=== PATIENT | male | born 1975 | race Caucasian/White ===

== ENCOUNTER 2020-08-14 07:29 | Outpatient (REF) | payer OTHER, SELFPAY ==
[2020-08-14 11:36] LABS: Cholesterol 151 mg/dL; HDL Cholesterol 40 mg/dL; LDL Cholesterol Calculated 83 mg/dl; Triglycerides 144 mg/dL
== END 2020-08-14 07:30 | disposition home or self-care (01) ==
LOC: HO.HMGCLDS 07:29
PROVIDERS: PCP Nurse Practitioner Family; Visit Provider Nurse Practitioner Family
DX: E78.5 Hyperlipidemia, unspecified (principal)
CPT/HCPCS: 80061

== ENCOUNTER → 2020-11-30 10:29 | Outpatient (BNVA) | payer OTHER, SELFPAY | PROVIDERS: PCP Nurse Practitioner Family; Referring Provider Nurse Practitioner Family; Visit Provider Nurse Practitioner ==

== ENCOUNTER 2021-04-29 11:03 | Outpatient (REF) | payer OTHER, SELFPAY ==
--- NOTE | ~2021-04-29 | XR_ITS ---
EXAMINATION: XR LUMBOSACRAL SPINE WITH OBLIQUES CLINICAL INFORMATION: Intervertebral disc degeneration. COMPARISON: None TECHNIQUE: AP, both oblique, and lateral views of the lumbar spine. Lateral view of the lumbosacral junction. FINDINGS: There is no evidence of acute fracture, spondylolisthesis, spondylolysis. Disc spaces are maintained. Schmorl's nodes are seen involving superior endplates of T12 and L1. There is facet arthropathy bilaterally L5-S1, right greater than left. Sacroiliac joints unremarkable. XR/XR lumbar spine 4V min IMPRESSION: No acute fracture, spondylolisthesis, spondylolysis. Facet arthropathy L5-S1.
== END 2021-04-29 11:04 | disposition home or self-care (01) ==
LOC: HO.HMGCX 11:03
PROVIDERS: PCP Nurse Practitioner Family; Visit Provider Physician Assistant
DX: M51.36 Other intervertebral disc degeneration, lumbar region (principal)
CPT/HCPCS: 72110

== ENCOUNTER → 2021-05-17 09:55 | Outpatient (BNVA) | payer OTHER, SELFPAY | PROVIDERS: PCP Nurse Practitioner Family; Referring Provider Nurse Practitioner Family; Visit Provider Nurse Practitioner | DX: K21.9 Gastro-esophageal reflux disease without esophagitis (principal); K22.10 Ulcer of esophagus without bleeding; R10.9 Unspecified abdominal pain; K58.2 Mixed irritable bowel syndrome | CPT/HCPCS: 99212 ==

== ENCOUNTER 2021-06-26 14:00 | Outpatient (RCR) | payer OTHER, SELFPAY | END 2021-06-27 07:57 | disposition home or self-care (01) | LOC: HO.PTCHIC 14:00 | PROVIDERS: PCP Nurse Practitioner Family; Visit Provider Physician Assistant | DX: M51.36 Other intervertebral disc degeneration, lumbar region (principal) | CPT/HCPCS: 97014; 97110; 97140; 97163 ==

== ENCOUNTER 2021-07-30 08:38 | Outpatient (REF) | payer OTHER, SELFPAY ==
[2021-07-30 11:35] LABS: Appearance Urine CLEAR; Color Urine YELLOW; Glucose Urine UA NEG (NEG); Leukocyte Esterase Urine NEG (NEG); Nitrite Urine NEG (NEG); Specific Gravity - Urine 1.015 (1.005-1.025); Urine Blood NEG (NEG); Urine Ketones NEG (NEG); Urine Protein NEG (NEG-TRACE)
[2021-07-30 12:00] LABS: Alanine Aminotransferase 23 U/L (0-40); Albumin Level 4.2 g/dL (3.5-5.0); Alkaline Phosphatase 53 U/L (39-117); Anion Gap 15 (12-20); Aspartate Amino Transferase 18 U/L (5-37); Bilirubin Total 0.4 mg/dL (0.0-1.0); Blood Urea Nitrogen 13 mg/dL (9-16); Calcium 8.7 mg/dL (8.4-10.2); Carbon Dioxide 26 mmol/L (22-29); Chloride 105 mmol/L (96-108); Cholesterol 218 mg/dL; Estimated Glomerular Filt Rate > 60; Glucose Fasting 101 mg/dL (60-99); HDL Cholesterol 47 mg/dL; LDL Cholesterol Calculated 144 mg/dl; Potassium 3.7 mmol/L (3.3-5.1); Sodium 142 mmol/L (135-145); Total Protein 6.3 g/dL (6.5-8.0); Triglycerides 136 mg/dL
[2021-07-30 12:23] LABS: TSH reflex Free T4 3.75 uIU/mL (0.32-4.0)
== END 2021-07-30 08:39 | disposition home or self-care (01) ==
LOC: HO.HMGCLDS 08:38
PROVIDERS: PCP Nurse Practitioner Family; Visit Provider Nurse Practitioner Family
DX: Z00.00 Encounter for general adult medical examination without abnormal findings (principal)
CPT/HCPCS: 36415; 80053; 80061; 81003; 84443

== ENCOUNTER 2021-10-17 08:22 | Outpatient (REF) | payer OTHER, SELFPAY ==
[2021-10-17 12:35] LABS: Alanine Aminotransferase 20 U/L (0-40); Albumin Level 4.4 g/dL (3.5-5.0); Alkaline Phosphatase 54 U/L (39-117); Anion Gap 12 (12-20); Aspartate Amino Transferase 17 U/L (5-37); Bilirubin Total 0.3 mg/dL (0.0-1.0); Blood Urea Nitrogen 14 mg/dL (9-16); Calcium 9.3 mg/dL (8.4-10.2); Carbon Dioxide 29 mmol/L (22-29); Chloride 106 mmol/L (96-108); Cholesterol 227 mg/dL; Estimated Glomerular Filt Rate > 60; Glucose Fasting 107 mg/dL (60-99); HDL Cholesterol 41 mg/dL; LDL Cholesterol Calculated 143 mg/dl; Potassium 4.4 mmol/L (3.3-5.1); Sodium 143 mmol/L (135-145); Total Protein 6.6 g/dL (6.5-8.0); Triglycerides 216 mg/dL
== END 2021-10-17 08:23 | disposition home or self-care (01) ==
LOC: HO.HMGCLDS 08:22
PROVIDERS: PCP Nurse Practitioner Family; Visit Provider Nurse Practitioner Family
DX: E78.5 Hyperlipidemia, unspecified (principal)
CPT/HCPCS: 36415; 80053; 80061

== ENCOUNTER → 2021-11-11 13:42 | Outpatient (BNVA) | payer OTHER, SELFPAY | PROVIDERS: PCP Nurse Practitioner Family; Referring Provider Nurse Practitioner Family; Visit Provider Nurse Practitioner | DX: K21.9 Gastro-esophageal reflux disease without esophagitis (principal); K22.10 Ulcer of esophagus without bleeding; K58.2 Mixed irritable bowel syndrome | CPT/HCPCS: 99212 ==

== ENCOUNTER 2021-12-12 09:59 | Outpatient (REF) | payer OTHER, SELFPAY ==
[2021-12-12 11:33] LABS: Cholesterol 232 mg/dL; HDL Cholesterol 43 mg/dL; LDL Cholesterol Calculated 117 mg/dl; Triglycerides 360 mg/dL
== END 2021-12-12 10:00 | disposition home or self-care (01) ==
LOC: HO.HMGCLDS 09:59
PROVIDERS: PCP Nurse Practitioner Family; Visit Provider Nurse Practitioner Family
DX: E78.5 Hyperlipidemia, unspecified (principal)
CPT/HCPCS: 36415; 80061

== ENCOUNTER → 2022-07-11 12:00 | Outpatient (BNVA) | payer OTHER, SELFPAY | PROVIDERS: PCP Nurse Practitioner Family; Referring Provider Nurse Practitioner Family; Visit Provider Nurse Practitioner | DX: K21.9 Gastro-esophageal reflux disease without esophagitis (principal); K22.10 Ulcer of esophagus without bleeding; K58.2 Mixed irritable bowel syndrome; Z79.899 Other long term (current) drug therapy | CPT/HCPCS: 99212 ==

== ENCOUNTER 2022-09-12 09:13 | Outpatient (REF) | payer OTHER, SELFPAY ==
[2022-09-12 11:31] LABS: Appearance Urine Clear; Color Urine Yellow; Glucose Urine UA Negative (Negative); Leukocyte Esterase Urine Negative (Negative); Nitrite Urine Negative (Negative); PH 6.5 (5.0-9.0); Specific Gravity - Urine 1.015 (1.005-1.025); Urine Blood Negative (Negative); Urine Ketones Negative (Negative); Urine Protein Negative (Neg-Trace)
[2022-09-12 11:34] LABS: MANUAL DIFF FLAG NO
[2022-09-12 11:43] LABS: Basophils Absolute Auto 0.1 X10*3/uL (0.0-0.2); Basophils Percent Auto 0.9 % (0-2); Eosinophils Absolute Auto 0.1 X10*3/uL (0.0-0.4); Eosinophils Percent Auto 2.3 % (0-4); Hematocrit 44.6 % (42.0-52.0); Imm Gran Abs Auto 0.02 X10*3/uL (0.00-0.03); Imm Gran Pct Auto 0.4 % (0.0-0.4); Lymphocytes Percent Auto 35.4 % (20-40); Mean Corpuscular HGB Conc 33.6 g/dl (31.0-36.0); Mean Corpuscular Hemoglobin 30.8 pg (27.0-33.0); Mean Corpuscular Volume 91.6 fL (80.0-98.0); Mean Platelet Volume 9.5 fL (9.4-12.4); Monocytes Absolute Auto 0.7 X10*3/uL (0.1-1.2); Monocytes Percent Auto 11.4 % (2-11); Neutrophils Absolute Auto 2.8 x10*3/uL (2.0-8.3); Neutrophils Percent Auto 49.6 % (45-73); Platelet Count 194 X10*3/uL (160-400); Red Blood Count 4.87 X10*6/uL (4.60-5.80); Red Cell Distribution Width 12.1 % (11.0-16.0); White Blood Count 5.7 X10*3/uL (4.8-10.8)
[2022-09-12 11:55] LABS: Alanine Aminotransferase 39 U/L (0-40); Albumin Level 4.4 g/dL (3.5-5.0); Alkaline Phosphatase 55 U/L (39-117); Anion Gap 14 (12-20); Aspartate Amino Transferase 27 U/L (5-37); Bilirubin Total 0.5 mg/dL (0.0-1.0); Blood Urea Nitrogen 13 mg/dL (9-16); Calcium 9.2 mg/dL (8.4-10.2); Carbon Dioxide 28 mmol/L (22-29); Chloride 104 mmol/L (96-108); Cholesterol 235 mg/dL; Estimated Glomerular Filt Rate > 60; Glucose Fasting 99 mg/dL (60-99); HDL Cholesterol 41 mg/dL; LDL Cholesterol Calculated 119 mg/dl; Potassium 4.4 mmol/L (3.3-5.1); Sodium 142 mmol/L (135-145); Total Protein 6.7 g/dL (6.5-8.0); Triglycerides 379 mg/dL
[2022-09-12 12:21] LABS: TSH reflex Free T4 2.31 uIU/mL (0.32-4.0)
== END 2022-09-12 09:14 | disposition home or self-care (01) ==
LOC: HO.HMGCLDS 09:13
PROVIDERS: PCP Nurse Practitioner Family; Visit Provider Nurse Practitioner Family
DX: Z00.00 Encounter for general adult medical examination without abnormal findings (principal)
CPT/HCPCS: 36415; 80053; 80061; 81003; 84443; 85025

== ENCOUNTER → 2023-01-23 12:56 | Outpatient (BNVA) | payer OTHER, SELFPAY | PROVIDERS: PCP Nurse Practitioner Family; Visit Provider Nurse Practitioner | DX: K58.2 Mixed irritable bowel syndrome (principal); K22.10 Ulcer of esophagus without bleeding; K21.9 Gastro-esophageal reflux disease without esophagitis; Z53.20 Procedure and treatment not carried out because of patient's decision for unspecified reasons | CPT/HCPCS: 99212 ==

== ENCOUNTER 2023-04-06 10:45 | Outpatient (REF) | payer OTHER, SELFPAY ==
[2023-04-06 13:59] LABS: MANUAL DIFF FLAG NO
[2023-04-06 14:03] LABS: Appearance Urine Clear; Color Urine Yellow; Glucose Urine UA Negative (Negative); Leukocyte Esterase Urine Negative (Negative); Nitrite Urine Negative (Negative); PH 6.5 (5.0-9.0); Specific Gravity - Urine 1.015 (1.005-1.025); Urine Blood Negative (Negative); Urine Ketones Negative (Negative); Urine Protein Negative (Neg-Trace)
[2023-04-06 14:06] LABS: Basophils Percent Auto 0.7 % (0-2); Eosinophils Absolute Auto 0.1 X10*3/uL (0.0-0.4); Hemoglobin 16.1 g/dl (14.0-18.0); Imm Gran Abs Auto 0.02 X10*3/uL (0.00-0.03); Imm Gran Pct Auto 0.3 % (0.0-0.4); Lymphocytes Absolute Auto 1.8 X10*3/uL (1.2-4.9); Lymphocytes Percent Auto 30.3 % (20-40); Mean Corpuscular HGB Conc 33.5 g/dl (31.0-36.0); Mean Corpuscular Hemoglobin 30.8 pg (27.0-33.0); Mean Corpuscular Volume 91.8 fL (80.0-98.0); Mean Platelet Volume 9.5 fL (9.4-12.4); Monocytes Absolute Auto 0.7 X10*3/uL (0.1-1.2); Monocytes Percent Auto 11.7 % (2-11); Neutrophils Absolute Auto 3.2 x10*3/uL (2.0-8.3); Platelet Count 211 X10*3/uL (160-400); Red Blood Count 5.23 X10*6/uL (4.60-5.80); Red Cell Distribution Width 12.1 % (11.0-16.0); White Blood Count 5.9 X10*3/uL (4.8-10.8)
[2023-04-06 14:50] LABS: Alanine Aminotransferase 38 U/L (0-40); Albumin Level 4.3 g/dL (3.5-5.0); Alkaline Phosphatase 63 U/L (39-117); Anion Gap 14 (12-20); Aspartate Amino Transferase 25 U/L (5-37); Bilirubin Total 0.4 mg/dL (0.0-1.0); Blood Urea Nitrogen 9 mg/dL (9-16); Calcium 9.1 mg/dL (8.4-10.2); Carbon Dioxide 28 mmol/L (22-29); Chloride 106 mmol/L (96-108); Cholesterol 211 mg/dL; Estimated Glomerular Filt Rate > 60; Glucose Fasting 90 mg/dL (60-99); HDL Cholesterol 41 mg/dL; LDL Cholesterol Calculated 118 mg/dl; Potassium 4.3 mmol/L (3.3-5.1); Sodium 144 mmol/L (135-145); TSH reflex Free T4 2.73 uIU/mL (0.32-4.0); Total Protein 6.5 g/dL (6.5-8.0); Triglycerides 264 mg/dL
== END 2023-04-06 10:46 | disposition home or self-care (01) ==
LOC: HO.HMGCLDS 10:45
PROVIDERS: PCP Nurse Practitioner Family; Visit Provider Nurse Practitioner Family
DX: Z01.83 Encounter for blood typing (principal); E78.5 Hyperlipidemia, unspecified
CPT/HCPCS: 36415; 80053; 80061; 81003; 84443; 85025; 86900; 86901

== ENCOUNTER 2023-08-18 12:33 | Outpatient (AMB) | payer OTHER, SELFPAY ==
--- NOTE | 2023-08-18 12:35 | MHC.OFFVIS ---
Intake Vital Signs 08/18/23 12:36 Height 5 ft 6 in Weight 201 lb 15.095 oz BMI 32.6 BP 140/78 H Blood Pressure Location Lt brachial Position Sitting Pulse 62 Intake Visit Reasons: 6 month follow up Intake Note: Curtis presents in the office as a 6 month follow up. CC: He states he has been doing well and reports no changes . Circus Rider Required: No Allergies No Known Allergies Allergy (Verified 05/06/23 10:16) HPI 6 month follow up HPI Details Assessment & Plan (1) GERD (gastroesophageal reflux disease): Code(s): K21.9 - Gastro-esophageal reflux disease without esophagitis Plan: He is here today with his who is supportive. He started a probiotic supplement. We will maintain all the meds. He continues his famotidine bid, dicyclomine and simethicone - but the simethicone is not covered by his insurance. He has OTC Gas-X pills. He is still anxious re: colonoscopy, he will call if he wants it going forward. We again discussed the sedation the prep and the procedure to try to lay any of his fears. He had a says he understands that is fears or rational but he still has to work up the courage to have it done. Sounds more like he does not like the thought of something going into the rectal area more than the fears anesthesia. There is no strong family history of colon cancer or polyps. He says that he is afraid that they will ?find something bad. ? I reassured him that age 47 this is incredibly unlikely but if he waits too long then you increase the likelihood of having a negative outcome. He has some rectal smearing, likely r/t hemorrhoids. Some help with OTC hemorrhoid cream, has not had rx cream. I instruct him on how to appropriately use the cream and I will try sending a prescription preparation. ROV 6 mos. (2) Erosive esophagitis: Comment: Very small linear erosion on 2019 EGD, There is an element of esophageal spasm that was relieved 40 started on dicyclomine for IBS Code(s): K22.10 - Ulcer of esophagus without bleeding Plan: He is here today with his who is supportive. He started a probiotic supplement. We will maintain all the meds. He continues his famotidine bid, dicyclomine and simethicone - but the simethicone is not covered by his insurance. He has OTC Gas-X pills. He is still anxious re: colonoscopy, he will call if he wants it going forward. We again discussed the sedation the prep and the procedure to try to lay any of his fears. He had a says he understands that is fears or rational but he still has to work up the courage to have it done. Sounds more like he does not like the thought of something going into the rectal area more than the fears anesthesia. There is no strong family history of colon cancer or polyps. He says that he is afraid that they will ?find something bad. ? I reassured him that age 47 this is incredibly unlikely but if he waits too long then you increase the likelihood of having a negative outcome. He has some rectal smearing, likely r/t hemorrhoids. Some help with OTC hemorrhoid cream, has not had rx cream. I instruct him on how to appropriately use the cream and I will try sending a prescription preparation. ROV 6 mos. (3) Irritable bowel syndrome with both constipation and diarrhea: Code(s): K58.2 - Mixed irritable bowel syndrome (4) Hemorrhoids: Code(s): K64.9 - Unspecified hemorrhoids (5) Colonoscopy refused: Code(s): Z53.20 - Procedure and treatment not carried out because of patient's decision for unspecified reasons Medications: New hydrocortisone 2.5 % (Proctosol HC) 1 appl [place] BID 30 grams 3RF hemorrho ids K64.9 - Unspecifie d hemorrhoids Refilled dicyclomine A 1-2 tablets 4 t imes a day as need ed for cramping PO ; 30 days 720 cap s 1RF K58.2 - Mixed irri table bowel syndro me, R10.9 - Unspec ified abdominal pa in famotidine 40 mg PO BID 30 d ays 180 tabs 2RF K21.9 - Gastro-eso phageal reflux dis ease without esoph agitis, K22.10 - U lcer of esophagus without bleeding simethicone (Gas R elief (simethicone )) 125 mg PO BID-QID 30 days PRN 240 c aps 2RF bloating K21.9 - Gastro-eso phageal reflux dis ease without esoph agitis, K22.10 - U lcer of esophagus without bleeding TODAY'S VISIT He is here today with his who is supportive. He continues his famotidine bid, dicyclomine and simethicone - but the simethicone is not covered by his insurance. He has OTC Gas-X pills. He is agreeable to having a colonoscopy scheduled. He continues with pudding-like stools and he has some rectal leakage that is bothersome. The hemorrhoid cream not helpful with this, but helps with the itching. He continues on. He wants a pill prep but Sutab not covered so will try for Clenpic which is on his formulary He has a FHX of Crohns in his children. He does not know his FHX> He will have anxiety prior to procedures, this will often trigger HTN but is relieved with sedation. This happened when he had an EGD in the past with Dr. Shaver. He has asthma that is well controlled and he denies cardiac problems. NO iD problems. He does not know his FHX. [facility] Medical History Cervical radiculitis Anxiety Dyslipidemia Thoracic disc herniation Surgical History H/O esophagogastroduodenoscopy No pertinent past surgical history Family History Father No problems noted. Mother No problems noted. Maternal Grandmother Mental health disorder Social History Household Members: Significant Other Housing: Apartment Alcohol intake: current Alcohol intake frequency: holidays/special occasions only Patient Tobacco Use Status: Former Tobacco user Years Smoked: 4 years ago e-Cigarette/Vaping Use: Never Used Second Hand Smoke Exposure: No Substance Use Type: Marijuana service: No Current occupational status: employed Current occupation: ANGULAR DEVELOPER Cognitive needs: No Hearing needs: No Vision needs: No Review of Systems Const Denies fatigue, Denies fever(s), Denies night sweats, Denies poor appetite and Denies weight loss ENT Reports Normal hearing present, Denies dental pain, Denies dysphagia, Denies hearing loss, Denies mouth pain, Denies odynophagia, Denies throat swelling, Denies tongue swelling and Reports other (Dentition adequate) Card Reports no additional complaints Resp Reports no additional complaints GI Denies abdominal pain, Denies melena, Reports bloating, Denies hematochezia, Denies constipation, Denies GI cramping, Denies dysphagia, Denies excessive flatus, Denies early satiety, Reports heartburn, Denies diarrhea, Denies nausea, Denies odynophagia, Denies vomiting and Denies hematemesis Skin/Breast Denies pruritus, Denies lesions, Denies rash and Denies jaundice Neuro Reports Normal hearing present and Denies Abnormal speech present Psych Reports anxiety Endo Denies fatigue Aller/Immun Denies throat swelling and Denies tongue swelling Physical Exam Vital Signs: Last Vital Signs Pulse 62 08/18/23 12:36 BP 140/78 H 08/18/23 12:36 BMI result Body Mass Index 32.6 Const General: cooperative, no acute distress, well developed, poor hygiene and well groomed Nutritional Appearance: well nourished and obese Orientation/consciousness: oriented to person, oriented to place and oriented to time Limitations: No language barrier HEENT Head: Yes normocephalic and Yes atraumatic Eyes General: appearance normal, both eyes and all related structures Pupils: Equal, round and reactive pupils present Neck Neck: Yes normal visual inspection and Yes no lymphadenopathy Thyroid: Thyroid normal Resp Effort & Inspection: normal respiratory effort and able to speak in complete sentences Auscultation: clear to auscultation bilaterally Cardio Rate: regular rate Rhythm: regular rhythm Heart sounds: Normal, physiologic split S2 sound present Peripheral pulses: radial pulses present and posterior tibial pulses present GI Inspection: No distended, No Abdominal panniculus present and Yes obesity Palpation (GI): Soft to palpation, nontender, no guarding, not rigid and No hepatosplenomegaly present Percussion: Yes normal to percussion Auscultation: normal bowel sounds Rectal Exam - Male: Yes deferred Skin General skin exam: no rashes or lesions noted, turgor normal, skin not dry, no jaundice, No spider nevi and no striae Rashes: no rashes Nails: normal Neuro General: oriented to person, oriented to place and oriented to time Cranial nerves: Yes Equal, round and reactive pupils present and Yes Normal hearing present Speech: No Abnormal speech present Extrem General: Yes normal to inspection, No clubbing, No cyanosis and No edema Psych Appearance: grossly normal and disheveled Mental Status: mental status grossly normal Speech and movement: Normal speech and movement present Affect: Anxious affect present Attitude: cooperative Thought process: Normal thought process present and not confabulating Thought content: Normal thought content present Insight: Limited insight present (Psych) Judgement: Limited judgement present (Psych) Assessment & Plan Assessment & Plan (1) GERD (gastroesophageal reflux disease): Code(s): K21.9 - Gastro-esophageal reflux disease without esophagitis Plan: He is here today with his who is supportive. He continues his famotidine bid, dicyclomine and simethicone - but the simethicone is not covered by his insurance. He has OTC Gas-X pills. He is agreeable to having a colonoscopy scheduled. He continues with pudding-like stools and he has some rectal leakage that is bothersome. The hemorrhoid cream not helpful with this, but helps with the itching. He continues on. He wants a pill prep but Sutab not covered so will try for Clenpic which is on his formulary He has a FHX of Crohns in his children. He does not know his FHX> He will have anxiety prior to procedures, this will often trigger HTN but is relieved with sedation. This happened when he had an EGD in the past with Dr. Shaver. He has asthma that is well controlled and he denies cardiac problems. NO iD problems. He does not know his FHX. (2) Erosive esophagitis: Comment: Very small linear erosion on 2019 EGD, There is an element of esophageal spasm that was relieved 40 started on dicyclomine for IBS Code(s): K22.10 - Ulcer of esophagus without bleeding (3) Irritable bowel syndrome with both constipation and diarrhea: Code(s): K58.2 - Mixed irritable bowel syndrome (4) Pre-op examination: Code(s): Z01.818 - Encounter for other preprocedural examination Orders: Orders Colonoscopy - GI Use Only Today Z01.818 - Encounter for other preprocedural examination Medications: New sod picosulf-mag ox-citric ac 10 mg-3.5 gram- 12 gram/160 mL (Clenpiq) take first dose at 5-9PM evening before colonoscopy; 2nd dose the next day approximately 5 hrs before colonoscopy 160 mL PO DAILY 320 mL 0RF Z81 - Encounter for other preprocedural examination Refilled dicyclomine A 1-2 tablets 4 times a day as needed for cramping PO; 30 days 720 caps 1RF K58.2 - Mixed irritable bowel syndrome, R10.9 - Unspecified abdominal pain famotidine 40 mg PO BID 30 days 180 tabs 2RF K21.9 - Gastro-esophageal reflux disease without esophagitis, K22.10 - Ulcer of esophagus without bleeding On Hold simethicone (Gas Relief (simethicone)) Hold Comment: insurance does not pay 125 mg PO BID-QID 30 days PRN 240 caps 2RF bloating K21.9 - Gastro-esophageal reflux disease without esophagitis, K22.10 - Ulcer of esophagus without bleeding Coding Level of Care Code Est Pt Level 4 (29245) Diagnoses GERD (gastroesophageal reflux disease) K21.9 Erosive esophagitis K22.10 Irritable bowel syndrome with both constipation and diarrhea K58.2 Pre-op examination [id number]
[2023-08-18 12:36] VITALS: BP 140/78; PULSE 62; BMI 32.6
== END 2023-08-18 13:05 | disposition home or self-care (01) ==
PROVIDERS: Visit Provider Nurse Practitioner
DX: K21.9 Gastro-esophageal reflux disease without esophagitis (principal); K22.10 Ulcer of esophagus without bleeding; K58.2 Mixed irritable bowel syndrome; Z01.818 Encounter for other preprocedural examination
CPT/HCPCS: 99214

== ENCOUNTER → 2023-08-18 12:33 | Outpatient (BNVA) | payer OTHER, SELFPAY | PROVIDERS: Visit Provider Nurse Practitioner | DX: Z01.818 Encounter for other preprocedural examination (principal); K21.9 Gastro-esophageal reflux disease without esophagitis; K22.10 Ulcer of esophagus without bleeding; K58.2 Mixed irritable bowel syndrome | CPT/HCPCS: 99212 ==

== ENCOUNTER 2023-11-10 07:58 | Day surgery (SDC) | payer OTHER, SELFPAY ==
[2023-11-10 08:51] VITALS: BMI 32.0
[2023-11-10 09:09] VITALS: BP 144/78; PULSE 69; RESP 16; TEMP 36.2; O2SAT 94
[2023-11-10] MEDS: Lactated Ringers 1,000 ML 80 ML IVCONT (09:15)
--- NOTE | 2023-11-10 09:44 | MHC.SHP ---
Pre-Procedural Eval Section A Date of Service: 11/10/23 Section B Chief Complaint: Mixed irritable bowel syndrome Details of Present Illness: abnormal bowel habit Relevant Family History (Specify if Yes): No Relevant Social History: Other (specify) (THC) Present Medications: see Short Stay Collaborative assessment Medical History: Significant History (Cervical radiculitis Anxiety Dyslipidemia Thoracic disc herniation) History of Previous Operations: Relevant previous surgery/procedure and date(s) (H/O esophagogastroduodenoscopy ) Allergies: Allergies Allergy/AdvReac Type Severity Reaction Status Date / Time No Known Allergies Allergy Verified 05/06/23 10:16 Review of Systems Sugical H&P ROS: Negative: Constitution, Cardiovascular, Respiratory, Neurological, Psychiatric, Hem-Onc, Allergic/Immunologic, Gastrointestinal, Genitourinary, Musculoskeletal, Integumentary, Endocrine and Eyes/Ears/Nose/Throat Exam Surgical H&P Exam: Normal: HEENT, Normal: Heart, Normal: Lungs, Normal: Extremities, Normal: Abdomen, Normal: Skin and Normal: Neurological Plan Diagnosis/Plan: Unchanged I have reviewed the history and physical and performed a pertinent physical examination on my patient. No changes have occurred unless specified. Time Spent With Patient Time: Total time managing care of this patient today ____ minutes.
--- NOTE | 2023-11-10 11:34 | P.OP_ITS ---
Operative Note Operative Note Date of Service: 11/10/23 Narrative: Operative Information Procedure Description: Colonoscopy Indication: altered bowle habit Anesthesia: MAC COLONOSCOPY Instrument: Olympus variable stiffness pediatric scope 190L Colonoscopy Monitoring: Vital signs and clinical assessment, continuous EKG monitoring, Pulse oximetry, Carbon Dioxide monitoring and blood pressure monitoring were done throughout the procedure. Colon withdrawal time was 10 minutes. Procedure: The patient was placed in the left lateral decubitis position and pre-procedure medications were administered. After a digital rectal examination of the ano-rectum, the video colonoscope was inserted into the rectum and advanced through the colon to the cecum/TI. The colonoscope was slowly withdrawn in a retrograde panoramic fashion and the colon mucosa was carefully examined including a retroflexed view of the rectum. Findings and interventions are described below. Procedure Difficulty: easy Findings: Terminal Ileum-normal Cecum:normal Ascending Colon: normal Transverse Colon -normal Descending Colon:normal Sigmoid Colon: normal Rectum: Retroflexion with small internal hemorrhoids, grade I Anorectum - normal Colon preparation: Currie Bowel Preparation Scale Right colon; 1-2 Transverse colon: 2 Left colon; 2 (0 = Unprepared colon segment with mucosa not seen due to solid stool that cannot be cleared. 1 = Portion of mucosa of the colon segment seen, but other areas of the colon segment not well seen due to staining, residual stool and/or opaque liquid. 2 = Minor amount of residual staining, small fragments of stool and/or opaque liquid, but mucosa of colon segment seen well. 3 = Entire mucosa of colon segment seen well with no residual staining, small fragments of stool or opaque liquid) Impression and Post Procedure Diagnosis: fair prep on right colon internal hemorrhoids Plan: High fiber diet leaflet Avoid straining at stool, epsom salts and sitz bath, anusol supps or cream Repeat Colonoscopy in 5 years due to fair prep right side or earlier if clinically indicated Above findings were reviewed with the patient and relevant handouts were provided if indicated.
[2023-11-10 11:40] VITALS: BP 120/70; PULSE 74; RESP 16; TEMP 37; O2SAT 95
[2023-11-10 11:55] VITALS: BP 135/88; PULSE 65; RESP 16; TEMP 36.9; O2SAT 96
== END 2023-11-10 12:06 | disposition home or self-care (01) ==
PROVIDERS: PCP Nurse Practitioner Family; Visit Provider Internal Medicine Gastroenterology
PROC: 0DJD8ZZ Inspection of Lower Intestinal Tract, Via Natural or Artificial Opening Endoscopic (ICD-10-PCS; CPT 45378; principal; 2023-11-10 10:30)
DX: R19.4 Change in bowel habit (principal); K58.2 Mixed irritable bowel syndrome; K64.0 First degree hemorrhoids; K21.9 Gastro-esophageal reflux disease without esophagitis; K22.10 Ulcer of esophagus without bleeding; E78.5 Hyperlipidemia, unspecified; F41.9 Anxiety disorder, unspecified; J45.909 Unspecified asthma, uncomplicated; M51.24 Other intervertebral disc displacement, thoracic region; M54.12 Radiculopathy, cervical region; Z79.899 Other long term (current) drug therapy; Z87.891 Personal history of nicotine dependence; F12.90 Cannabis use, unspecified, uncomplicated
CPT/HCPCS: 45378; J2704

== ENCOUNTER → 2023-11-10 07:58 | Outpatient (BNV) | payer OTHER, SELFPAY | PROVIDERS: PCP Nurse Practitioner Family; Visit Provider Internal Medicine Gastroenterology | DX: R19.4 Change in bowel habit (principal); K64.0 First degree hemorrhoids | CPT/HCPCS: 45378 ==

== ENCOUNTER 2023-11-11 10:26 | Outpatient (AMB) | payer OTHER, SELFPAY ==
--- NOTE | 2023-11-11 10:31 | MHC.PC.OV ---
Vital Signs 11/11/23 10:34 Height 5 ft 6 in Weight 199 lb BMI 32.1 BP 120/82 Blood Pressure Location Rt brachial Position Sitting Pulse 70 Pulse Source Pulse Oximeter Pulse Oximetry (%) 98 Oxygen Delivery Method Room Air Intake Visit Reasons: PE Intake Note: Patient here for physical exam. Pt would like to talk about meds. Colonoscopy: 11/10/23 Allergies No Known Allergies Allergy (Verified 11/11/23 10:52) Medication List - Last Reconciled 11/11/23 by CASSIE MadrigalP- albuterol sulfate 90 mcg/actuation (Ventolin HFA) 1 inh inhalation QID PRN 30 days amlodipine 2.5 mg PO DAILY atorvastatin 20 mg PO BEDTIME 90 days cetirizine (All Day Allergy (cetirizine)) 10 mg PO BID PRN coenzyme Q10 150 mg PO DAILY 90 days cyclobenzaprine 10 mg PO TID famotidine 40 mg PO BID 30 days gabapentin 300 mg PO TID hydrocortisone 2.5% (Proctosol HC) 1 appl OR BID hydroxyzine HCl 25 mg PO DAILY PRN ketoconazole 2% 1 appl topical DAILY 14 days lactobacillus combination no.9 (Adult 50 Plus Probiotic) PO DAILY methocarbamol 750 mg PO QID 90 days multivitamin 1 tab PO DAILY omega 3-dln-ynr-fish oil 1,200 (144-216) mg (Fish Oil) caps PO simethicone (Gas Relief (simethicone)) 125 mg PO BID-QID PRN 30 days sod picosulf-mag ox-citric ac 10 mg-3.5 gram- 12 gram/160 mL (Clenpiq) 160 mL PO DAILY 2 doses tramadol 50 mg PO QID Tobacco use date assessed: 11/11/23 Dental Screening Dental Screen Date: 11/11/23 Did you have a dental visit in the last 12 months?: Yes Did you have a dental problem in the last 6 months where you did not have access to dental care?: No Was dental information given to patient?: Patient has dentist HPI PE HPI Details Pt is here for a PE. Will order labs. Colon screen is up to date. Pt reports stopping his sertraline, buspirone, reports feeling better off of these meds. Pt described weaning off of them. [facility] Medical History Cervical radiculitis Anxiety Dyslipidemia Thoracic disc herniation Surgical History H/O esophagogastroduodenoscopy No pertinent past surgical history Family History Father No problems noted. Mother No problems noted. 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 1. Little interest or pleasure in doing things: not at all 2. Feeling down, depressed, or hopeless: not at all 3. Trouble falling or staying asleep, or sleeping too much: not at all 4. Feeling tired or having little energy: not at all 5. Poor appetite or overeating: several days 6. Feeling bad about yourself - or that you are a failure or have let yourself or your family down: not at all 7. Trouble concentrating on things, such as reading the newspaper or watching television: not at all 8. Moving or speaking so slowly that other people could have noticed. Or the opposite - being so fidgety or restless that you have been moving around a lot more than usual: not at all 9. Thoughts that you would be better off or of hurting yourself in some way: not at all Total score: 1 Depression Screening Interpretation: Negative Depression Screening Done: Yes 04333 - PHQ-9 Billing: Yes Source: Developed by Drs. Devaughn Hernandez, Xochilt Arana, Scott De León and colleagues, with an educational ivory from [employer]. Thrive Questionnaire Date Thrive assessed: 11/11/23 I am a: Patient What is your living situation today?: I have a steady place to live Within the past 12 months, did the food you bought not last and you didn't have the money to get more?: Never true Within the past 12 months, did you worry whether your food would run out before you got money to buy more?: Never true Do you have trouble paying for medicines?: No Do you have trouble getting transportation to medical appointments?: No Do you have trouble paying your heating and electricity bill?: No Do you have trouble with day-to-day activities such as bathing, preparing meals, shopping, managing finances, etc.?: No Are you currently unemployed and looking for a job?: No Are you interested in more education?: No AUDIT C Alcohol Use Questionnaire (AUDIT-C) 1. How often do you have a drink containing alcohol?: Never 3. How often do you have six or more drinks on one occasion?: Never Total Score: 0 Score Reviewed/Action Taken: No NIGHAT-7 AMB Questionnaire NIGHAT-7 Date NIGHAT - 7 assessed: 11/11/23 Feeling nervous, anxious, or on edge: 0 = Not at all Not being able to stop or control worryin = Not at all Worrying too much about different things: 0 = Not at all Trouble relaxin = Not at all Being so restless that it is hard to sit still: 0 = Not at all Becoming easily annoyed or irritable: 0 = Not at all Feeling afraid as if something awful might happen: 0 = Not at all Total NIGHAT-7 score (0-4 normal; 5-9 mild; 10-14 moderate; 15-21 severe): 0 Source: Developed by Drs. Devaughn Hernandez, Xochilt Arana, Scott De León and colleagues, with an educational ivory from [employer]. NIGHAT-7 Assessment Billing NIGHAT-7 Assessment Tool: NIGHAT-7 Assessment 35301 Review of Systems Const Denies chills and Denies fever(s) Eyes Denies blurry vision ENT Denies vertigo, Denies dizziness and Denies sore throat Card Denies chest pain at rest, Denies chest pain with activity, Denies diaphoresis, Denies dyspnea and Denies dyspnea on exertion Resp Denies cough, Denies dyspnea, Denies dyspnea on exertion and Denies wheezing GI Denies abdominal pain, Denies melena, Denies hematochezia, Denies constipation, Denies diarrhea and Denies loose stools Denies hematuria Musc Denies numbness and Denies tingling Skin/Breast Denies lesions Neuro Denies vertigo, Denies dizziness, Denies numbness and Denies tingling Psych Denies anxiety, Denies depression, Denies homicidal ideation, Denies suicidal ideation and Denies other (substance abuse) Aller/Immun Denies wheezing Physical exam (Primary Care) Vital Signs: Last Vital Signs Pulse 70 11/11/23 10:34 BP 120/82 11/11/23 10:34 Pulse Ox 98 11/11/23 10:34 Oxygen Delivery Method Room Air 11/11/23 10:34 BMI result Body Mass Index 32.1 Tobacco/Smoking Status: Tobacco use Status Tobacco use date assessed 11/11/23 11/11/23 10:40 Patient Tobacco Use Status Former Tobacco user 11/11/23 10:32 e-Cigarette/Vaping Use Never Used 11/11/23 10:32 Depression Screening Interpretation: Negative Thrive Assessment: Date of Thrive Assessment Date Thrive assessed 01/12/23 11/11/23 10:32 Const General: cooperative Nutritional Appearance: obese Orientation/consciousness: patient oriented x3 HENMT Head: Yes normal to inspection, Yes normocephalic and Yes atraumatic Ears: TM's normal bilaterally Eyes General: appearance normal, both eyes and all related structures Alignment and Position: alignment normal and position normal Neck Neck: Yes normal visual inspection and Yes no lymphadenopathy Thyroid: Thyroid normal Resp Effort & Inspection: normal respiratory effort Auscultation: clear to auscultation bilaterally Cardio Rate: regular rate Rhythm: regular rhythm Heart sounds: S1 normal heart sound present, S2 normal heart sound present and no murmurs GI Palpation (GI): Soft to palpation and nontender Auscultation: normal bowel sounds Male General Exam: Yes normal external exam Penis: normal penis Scrotum: scrotum normal, testes descended bilaterally and no inguinal hernias Testes: no testicular mass Skin Rashes: no rashes Neuro General: patient oriented x3, moves all extremities, no focal motor deficits and deep tendon reflexes 2+ bilaterally Romberg Test: Negative Psych Appearance: grossly normal Mental Status: mental status grossly normal Speech and movement: Normal speech and movement present Affect: normal affect Attitude: cooperative Thought process: Normal thought process present Thought content: Normal thought content present Insight: Good insight present (Psych) Judgement: Good judgement present (Psych) Assessment and Plan Assessment & Plan (1) Physical exam: Code(s): Z00.00 - Encounter for general adult medical examination without abnormal findings Plan: Labs ordered Plan The patient agreed to the use of a medical office assistant instructor for this encounter. Scribed for MELECIO Hull by Yaneli Garibay medical office assistant instructor, on 11/11/2023 at 10:50 EST. Orders: Orders [facility] [place]. Panel Fast Today Z00.00 - Encounter for general adult medical examination without abnormal findings TSH reflex Free T4 Today Z00.00 - Encounter for general adult medical examination without abnormal findings UA CC w/rflx Micro + Cult Today Z00.00 - Encounter for general adult medical examination without abnormal findings Complete Blood Count Auto Diff Today Z00.00 - Encounter for general adult medical examination without abnormal findings Lipid Panel Today Z00.00 - Encounter for general adult medical examination without abnormal findings Medications: Refilled albuterol sulfate 90 mcg/actuation (Ventolin HFA) 1 inh inhalation QID 30 days PRN 8.5 grams 3RF shortness of breath or wheezing Coding Level of Care Code Est Pt Prev Care 40-64y(74568) Diagnoses Physical exam Z00.00 Additional Codes NIGHAT-7 Assessment Billing - NIGHAT-7 Assessment Tool: NIGHAT-7 Assessment 23524 ([id number])
[2023-11-11 10:34] VITALS: BP 120/82; PULSE 70; O2SAT 98; BMI 32.1
== END 2023-11-11 11:04 | disposition home or self-care (01) ==
PROVIDERS: PCP Nurse Practitioner Family; Visit Provider Nurse Practitioner Family
DX: Z00.00 Encounter for general adult medical examination without abnormal findings (principal)
CPT/HCPCS: 99396

== ENCOUNTER 2023-11-24 11:50 | Outpatient (AMB) | payer OTHER, SELFPAY ==
[2023-11-24 11:55] VITALS: BP 122/97; PULSE 66; BMI 32.1
--- NOTE | 2023-11-24 11:55 | A.OFFVIS_ITS ---
Intake Vital Signs 11/24/23 11:55 Height 5 ft 6 in Weight 199 lb BMI 32.1 BP 122/97 H Blood Pressure Location Rt brachial Position Sitting Pulse 66 Intake Visit Reasons: s/p colon Intake Note: Patient presents to in office visit today in follow up of colonoscopy. CC: Patient reports doing well and denies having any GI symptoms today. [employer] Required: No Allergies No Known Allergies Allergy (Verified 11/24/23 12:02) HPI s/p colon HPI Details Assessment & Plan (1) GERD (gastroesophageal reflux diseas e): Code(s): K21.9 - Gastro-esophageal reflux disease without esophagitis Plan: He is here today with his who is supportive. He continues his famotidine bid, dicyclomine and simethicone - but the simethicone is not covered by his insurance. He has OTC Gas-X pills. He is agreeable to having a colonoscopy scheduled. He continues with pudding- like stools and he has some rectal leakage that is bothersome. The hemorrhoid cream not helpful with this, but helps with the itching. He continues on. He wants a pill prep but Sutab not covered so will try for Clenpic which is on his formulary He has a FHX of Crohns in his children. He does not know his FHX> He will have anxiety prior to procedures, this will often trigger HTN but is relieved with sedation. This happened when he had an EGD in the past with Dr. Shaver. He has asthma that is well controlled and he denies cardiac problems. NO iD problems. He does not know his FHX. (2) Erosive esophagitis: Comment: Very small linear erosion on 2019 EGD, There is an element of esophageal spasm that was relieved 40 started on dicyclomine for IBS Code(s): K22.10 - Ulcer of esophagus without bleeding (3) Irritable bowel syndrome with both c onstipation and diarrhea: Code(s): K58.2 - Mixed irritable bowel syndrome (4) Pre-op examination: Code(s): Z01.818 - Encounter for other preprocedural examination Orders: Orders Colonoscopy - GI U se Only Today Z01.818 - Encounte r for other prepro cedural examinatio n Medications: New sod picosulf-mag o x-citric ac 10 mg- 3.5 gram- 12 gram/ 160 mL (Clenpiq) take first dose at 5-9PM evening b efore colonoscopy; 2nd dose the next day approximately 5 hrs before colo noscopy 160 mL PO DAILY 3 20 mL 0RF Z01.818 - Encounte r for other prepro cedural examinatio n Refilled dicyclomine A 1-2 tablets 4 t imes a day as need ed for cramping PO ; 30 days 720 cap s 1RF K58.2 - Mixed irri table bowel syndro me, R10.9 - Unspec ified abdominal pa in famotidine 40 mg PO BID 30 d ays 180 tabs 2RF K21.9 - Gastro-eso phageal reflux dis ease without esoph agitis, K22.10 - U lcer of esophagus without bleeding On Hold simethicone (Gas R elief (simethicone )) Hold Comment : insurance does not pay 125 mg PO BID-QID 30 days PRN 240 c aps 2RF bloating K21.9 - Gastro-eso phageal reflux dis ease without esoph agitis, K22.10 - U lcer of esophagus without bleeding COLONOSCOPY 11/10/23 Findings: Terminal Ileum-normal Cecum:normal Ascending Colon: normal Transverse Colon -normal Descending Colon:normal Sigmoid Colon: normal Rectum: Retroflexion with small internal hemorrhoids, grade I Anorectum - normal Impression and Post Procedure Diagnosis: fair prep on right colon internal hemorrhoids Plan: High fiber diet leaflet Avoid straining at stool, epsom salts and sitz bath, anusol supps or cream Repeat Colonoscopy in 5 years due to fair prep right side or earlier if clinically indicated TODAY'S VISIT THE PROCEDURE SHOULD BE REPEATED IN 5 YEARS DUE TO FAIR PREP. The procedure was well tolerated. The results were explained and the patient is agreeable to the follow-up interval as stated. The bowel pattern has returned to normal. Education was provided to tell any 1st degree relatives about their findings to be sure that they are screened by age 45. Educated that they will be put on a recall list when it is time for their repeat scope but should they move out of state or away from the hospital they will need to remember along with their primary to repeat the procedure in a timely fashion to avoid any adverse complications. He came in at 8am and he did not get called in until 12:00! He continues his famotidine bid, dicyclomine and simethicone - but the simethicone is not covered by his insurance. He has OTC Gas-X pills.He also has proctosol cream that he uses for his intermittent external roid. Keep 6 mos appt. [facility] Medical History (Updated 11/24/23 @ 12:10 by GABRIELA Mcneill) Pre-op examination Colonoscopy refused Cervical radiculitis Anxiety Dyslipidemia Thoracic disc herniation Surgical History (Updated 11/24/23 @ 12:10 by GABRIELA Mcneill) H/O colonoscopy H/O esophagogastroduodenoscopy No pertinent past surgical history Family History Father No problems noted. Mother No problems noted. 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 Cognitive needs: No Hearing needs: No Vision needs: No Review of Systems Const Denies fatigue, Denies fever(s), Denies night sweats, Denies poor appetite and Denies weight loss ENT Reports Normal hearing present, Denies dental pain, Denies dysphagia, Denies hearing loss, Denies mouth pain, Denies odynophagia, Denies throat swelling, Denies tongue swelling and Reports other (Dentition adequate) Card Reports no additional complaints Resp Reports no additional complaints GI Denies abdominal pain, Denies melena, Reports bloating, Denies hematochezia, Denies constipation, Reports GI cramping, Denies dysphagia, Denies excessive flatus, Denies early satiety, Reports heartburn, Denies diarrhea, Denies nausea, Denies odynophagia, Denies vomiting and Denies hematemesis Skin/Breast Denies pruritus, Denies lesions, Denies rash and Denies jaundice Neuro Reports Normal hearing present and Denies Abnormal speech present Endo Denies fatigue Aller/Immun Denies throat swelling and Denies tongue swelling Physical Exam Vital Signs: Last Vital Signs Pulse 66 11/24/23 11:55 BP 122/97 H 11/24/23 11:55 BMI result Body Mass Index 32.1 Const General: cooperative, no acute distress, well developed and well groomed Nutritional Appearance: well nourished and obese Orientation/consciousness: oriented to person, oriented to place and oriented to time Limitations: No language barrier HEENT Head: Yes normocephalic and Yes atraumatic Eyes General: appearance normal, both eyes and all related structures Pupils: Equal, round and reactive pupils present Neck Neck: Yes normal visual inspection and Yes no lymphadenopathy Thyroid: Thyroid normal Resp Effort & Inspection: normal respiratory effort and able to speak in complete se ntences Auscultation: clear to auscultation bilaterally Cardio Rate: regular rate Rhythm: regular rhythm Heart sounds: Normal, physiologic split S2 sound present Peripheral pulses: radial pulses present and posterior tibial pulses present GI Inspection: No distended, No Abdominal panniculus present and Yes obesity Palpation (GI): Soft to palpation, nontender, no guarding, not rigid and No hepatosplenomegaly present Percussion: Yes normal to percussion Auscultation: normal bowel sounds Rectal Exam - Male: Yes deferred Skin General skin exam: no rashes or lesions noted, turgor normal, skin not dry, no jaundice, No spider nevi and no striae Rashes: no rashes Nails: normal Neuro General: oriented to person, oriented to place and oriented to time Cranial nerves: Yes Equal, round and reactive pupils present and Yes Normal hearing present Speech: No Abnormal speech present Extrem General: Yes normal to inspection, No clubbing, No cyanosis and No edema Psych Appearance: grossly normal and well kempt Mental Status: mental status grossly normal Speech and movement: Normal speech and movement present Affect: normal affect Attitude: cooperative Thought process: Normal thought process present and not confabulating Thought content: Normal thought content present Insight: Fair insight present (Psych) Judgement: Fair judgement present (Psych) Results Reviewed Results Reviewed: COLONOSCOPY 11/10/23 Findings: Terminal Ileum-normal Cecum:normal Ascending Colon: normal Transverse Colon -normal Descending Colon:normal Sigmoid Colon: normal Rectum: Retroflexion with small internal hemorrhoids, grade I Anorectum - normal Impression and Post Procedure Diagnosis: fair prep on right colon internal hemorrhoids Plan: High fiber diet leaflet Avoid straining at stool, epsom salts and sitz bath, anusol supps or cream Repeat Colonoscopy in 5 years due to fair prep right side or earlier if clinically indicated Assessment & Plan Assessment & Plan (1) Irritable bowel syndrome with both constipation and diarrhea: Code(s): K58.2 - Mixed irritable bowel syndrome (2) Erosive esophagitis: Comment: Very small linear erosion on 2019 EGD, There is an element of esophageal spasm that was relieved 40 started on dicyclomine for IBS Code(s): K22.10 - Ulcer of esophagus without bleeding (3) GERD (gastroesophageal reflux disease): Code(s): K21.9 - Gastro-esophageal reflux disease without esophagitis (4) Hemorrhoids: Code(s): K64.9 - Unspecified hemorrhoids Plan THE PROCEDURE SHOULD BE REPEATED IN 5 YEARS DUE TO FAIR PREP. The procedure was well tolerated. The results were explained and the patient is agreeable to the follow-up interval as stated. The bowel pattern has returned to normal. Education was provided to tell any 1st degree relatives about their findings to be sure that they are screened by age 45. Educated that they will be put on a recall list when it is time for their repeat scope but should they move out of state or away from the hospital they will need to remember along with their primary to repeat the procedure in a timely fashion to avoid any adverse complications. He came in at 8am and he did not get called in until 12:00! He continues his famotidine bid, dicyclomine and simethicone - but the simethicone is not covered by his insurance. He has OTC Gas-X pills.He also has proctosol cream that he uses for his intermittent external roid. Keep 6 mos appt. Medications: New dicyclomine 10 mg PO BID 60 caps 6RF Refilled famotidine 40 mg PO BID 30 days 180 tabs 2RF K21.9 - Gastro-esophageal reflux disease without esophagitis, K22.10 - Ulcer of esophagus without bleeding hydrocortisone 2.5% (Proctosol HC) 1 appl UT BID 30 grams 3RF hemorrhoids K64.9 - Unspecified hemorrhoids Coding Level of Care Code Est Pt Level 3 (16668) Diagnoses Irritable bowel syndrome with both constipation and diarrhea K58.2 Erosive esophagitis K22.10 GERD (gastroesophageal reflux disease) K21.9 Hemorrhoids K64.9
== END 2023-11-24 12:25 | disposition home or self-care (01) ==
PROVIDERS: PCP Nurse Practitioner Family; Visit Provider Nurse Practitioner
DX: K58.2 Mixed irritable bowel syndrome (principal); K22.10 Ulcer of esophagus without bleeding; K21.9 Gastro-esophageal reflux disease without esophagitis; K64.9 Unspecified hemorrhoids
CPT/HCPCS: 99213

== ENCOUNTER → 2023-11-24 11:50 | Outpatient (BNVA) | payer OTHER, SELFPAY | PROVIDERS: PCP Nurse Practitioner Family; Visit Provider Nurse Practitioner | DX: K64.0 First degree hemorrhoids (principal); K58.2 Mixed irritable bowel syndrome; K22.10 Ulcer of esophagus without bleeding; K21.9 Gastro-esophageal reflux disease without esophagitis; Z98.890 Other specified postprocedural states | CPT/HCPCS: 99212 ==

== ENCOUNTER 2024-02-17 12:12 | Outpatient (AMB) | payer OTHER, SELFPAY ==
--- NOTE | 2024-02-17 12:24 | A.OFFVIS_ITS ---
Intake Vital Signs 02/17/24 12:31 Height 5 ft 6 in Weight 196 lb BMI 31.6 BP 108/58 L Blood Pressure Location Lt brachial Position Sitting Pulse 62 Intake Visit Reasons: 6 month follow up Intake Note: Patient follow up Patient denies any GI issues for today. Air Quality Instrument Specialist Required: No Accompanied by: Spouse Allergies No Known Allergies Allergy (Verified 11/24/23 12:02) HPI 6 month follow up HPI Details Assessment & Plan (1) Irritable bowel syndrome with both c onstipation and diarrhea: Code(s): K58.2 - Mixed irritable bowel syndrome (2) Erosive esophagitis: Comment: Very small linear erosion on 2019 EGD, There is an element of esophageal spasm that was relieved 40 started on dicyclomine for IBS Code(s): K22.10 - Ulcer of esophagus without bleeding (3) GERD (gastroesophageal reflux diseas e): Code(s): K21.9 - Gastro-esophageal reflux disease without esophagitis (4) Hemorrhoids: Code(s): K64.9 - Unspecified hemorrhoids Plan THE PROCEDURE SHOULD BE REPEATED IN 5 YEARS DUE TO FAIR PREP. The procedure was well tolerated. The results were explained and the patient is agreeable to the follow-up interval as stated. The bowel pattern has returned to normal. Education was provided to tell any 1st degree relatives about their findings to be sure that they are screened by age 45. Educated that they will be put on a recall list when it is time for their repeat scope but should they move out of state or away from the hospital they will need to remember along with their primary to repeat the procedure in a timely fashion to avoid any adverse complications. He came in at 8am and he did not get called in until 12:00! He continues his famotidine bid, dicyclomine and simethicone - but the simethicone is not covered by his insurance. He has OTC Gas-X pills.He also has proctosol cream that he uses for his intermittent external roid. Keep 6 mos appt. Medications: New dicyclomine 10 mg PO BID 60 c aps 6RF Refilled famotidine 40 mg PO BID 30 d ays 180 tabs 2RF K21.9 - Gastro-eso phageal reflux dis ease without esoph agitis, K22.10 - U lcer of esophagus without bleeding hydrocortisone 2.5 % (Proctosol HC) [address] BID 30 grams 3RF hemorrho ids K64.9 - Unspecifie d hemorrhoids TODAY'S VISIT He continues to do well. He continues his famotidine bid, dicyclomine and simethicone - but the simethicone is not covered by his insurance. He has OTC Gas-X pills.He also has proctosol cream that he uses for his intermittent external hemorrhoids. He remains satisfied with his GI regimen. ROV 6 mos. [facility] Medical History (Updated 11/24/23 @ 12:10 by GABRIELA Mcneill) Pre-op examination Colonoscopy refused Cervical radiculitis Anxiety Dyslipidemia Thoracic disc herniation Surgical History H/O colonoscopy H/O esophagogastroduodenoscopy No pertinent past surgical history Family History Father No problems noted. Mother No problems noted. Maternal Grandmother Mental health disorder Social History Household Members: Significant Other Housing: Apartment Alcohol intake: current Alcohol intake frequency: holidays/special occasions only Patient Tobacco Use Status: Former Tobacco user Years Smoked: 4 years ago e-Cigarette/Vaping Use: Never Used Second Hand Smoke Exposure: No Substance Use Type: Marijuana service: No Current occupational status: employed Current occupation: ESTATE ATTORNEY Cognitive needs: No Hearing needs: No Vision needs: No Review of Systems Const Denies fatigue, Denies fever(s), Denies night sweats, Denies poor appetite and Denies weight loss ENT Reports Normal hearing present, Denies dental pain, Denies dysphagia, Denies hearing loss, Denies mouth pain, Denies odynophagia, Denies throat swelling, Denies tongue swelling and Reports other (Dentition adequate) Card Reports no additional complaints Resp Reports no additional complaints GI Details: Denies abdominal pain, Denies melena, Reports bloating, Denies hematochezia, Denies constipation, Denies GI cramping, Denies dysphagia, Denies excessive flatus, Denies early satiety, Reports heartburn, Reports diarrhea, Denies nausea, Denies odynophagia, Denies vomiting and Denies hematemesis Skin/Breast Denies pruritus, Denies lesions, Denies rash and Denies jaundice Neuro Reports Normal hearing present and Denies Abnormal speech present Endo Denies fatigue Aller/Immun Denies throat swelling and Denies tongue swelling Physical Exam Vital Signs: Last Vital Signs Pulse 62 02/17/24 12:31 BP 108/58 L 02/17/24 12:31 BMI result Body Mass Index 31.6 Const General: cooperative, no acute distress, well developed and well groomed Nutritional Appearance: well nourished and obese Orientation/consciousness: oriented to person, oriented to place and oriented to time Limitations: No language barrier HEENT Head: Yes normocephalic and Yes atraumatic Eyes General: appearance normal, both eyes and all related structures Pupils: Equal, round and reactive pupils present Neck Neck: Yes normal visual inspection and Yes no lymphadenopathy Thyroid: Thyroid normal Resp Effort & Inspection: normal respiratory effort and able to speak in complete sentences Auscultation: clear to auscultation bilaterally Cardio Rate: regular rate Rhythm: regular rhythm Heart sounds: Normal, physiologic split S2 sound present Peripheral pulses: radial pulses present and posterior tibial pulses present GI Inspection: No distended, No Abdominal panniculus present and Yes obesity Palpation (GI): Soft to palpation, nontender, no guarding, not rigid and No hepatosplenomegaly present Percussion: Yes normal to percussion Auscultation: normal bowel sounds Rectal Exam - Male: Yes deferred Skin General skin exam: no rashes or lesions noted, turgor normal, skin not dry, no jaundice, No spider nevi and no striae Rashes: no rashes Nails: normal Neuro General: oriented to person, oriented to place and oriented to time Cranial nerves: Yes Equal, round and reactive pupils present and Yes Normal hearing present Speech: No Abnormal speech present Extrem General: Yes normal to inspection, No clubbing, No cyanosis and No edema Psych Appearance: grossly normal and well kempt Mental Status: mental status grossly normal Speech and movement: Normal speech and movement present Affect: normal affect Attitude: cooperative Thought process: Normal thought process present and not confabulating Thought content: Normal thought content present Insight: Limited insight present (Psych) Judgement: Limited judgement present (Psych) Assessment & Plan Assessment & Plan (1) Irritable bowel syndrome with both constipation and diarrhea: Code(s): K58.2 - Mixed irritable bowel syndrome (2) GERD (gastroesophageal reflux disease): Code(s): K21.9 - Gastro-esophageal reflux disease without esophagitis (3) Erosive esophagitis: Comment: Very small linear erosion on 2019 EGD, There is an element of esophageal spasm that was relieved 40 started on dicyclomine for IBS Code(s): K22.10 - Ulcer of esophagus without bleeding Plan He continues to do well. He continues his famotidine bid, dicyclomine and simethicone - but the simethicone is not covered by his insurance. He has OTC Gas-X pills.He also has proctosol cream that he uses for his intermittent external hemorrhoids. He remains satisfied with his GI regimen. ROV 6 mos. Medications: Refilled dicyclomine 10 mg PO BID 60 caps 6RF famotidine 40 mg PO BID 180 tabs 2RF 30 days K21.9 - Gastro-esophageal reflux disease without esophagitis, K22.10 - Ulcer of esophagus without bleeding Coding Level of Care Code Est Pt Level 3 (30516) Diagnoses Irritable bowel syndrome with both constipation and diarrhea K58.2 GERD (gastroesophageal reflux disease) K21.9 Erosive esophagitis K22.10
[2024-02-17 12:31] VITALS: BP 108/58; PULSE 62; BMI 31.6
== END 2024-02-17 12:43 | disposition home or self-care (01) ==
PROVIDERS: PCP Nurse Practitioner Family; Visit Provider Nurse Practitioner
DX: K58.2 Mixed irritable bowel syndrome (principal); K21.9 Gastro-esophageal reflux disease without esophagitis; K22.10 Ulcer of esophagus without bleeding
CPT/HCPCS: 99213

== ENCOUNTER → 2024-02-17 12:12 | Outpatient (BNVA) | payer OTHER, SELFPAY | PROVIDERS: PCP Nurse Practitioner Family; Visit Provider Nurse Practitioner | DX: K58.2 Mixed irritable bowel syndrome (principal); K21.9 Gastro-esophageal reflux disease without esophagitis; K22.10 Ulcer of esophagus without bleeding | CPT/HCPCS: 99212 ==

== ENCOUNTER 2024-05-03 10:09 | Outpatient (REF) | payer OTHER, SELFPAY ==
[2024-05-03 12:58] LABS: MANUAL DIFF FLAG NO
[2024-05-03 13:02] LABS: Appearance Urine Clear; Color Urine Yellow; Glucose Urine UA Negative (Negative); Leukocyte Esterase Urine Negative (Negative); Nitrite Urine Negative (Negative); PH 5.5 (5.0-9.0); Specific Gravity - Urine 1.015 (1.005-1.025); Urine Blood Negative (Negative); Urine Ketones Negative (Negative); Urine Protein Negative (Neg-Trace)
[2024-05-03 13:19] LABS: Basophils Percent Auto 0.5 % (0-2); Eosinophils Absolute Auto 0.1 X10*3/uL (0.0-0.4); Eosinophils Percent Auto 2.2 % (0-4); Hematocrit 45.2 % (42.0-52.0); Hemoglobin 15.3 g/dl (14.0-18.0); Imm Gran Abs Auto 0.01 X10*3/uL (0.00-0.03); Imm Gran Pct Auto 0.2 % (0.0-0.4); Lymphocytes Absolute Auto 2.3 X10*3/uL (1.2-4.9); Lymphocytes Percent Auto 41.3 % (20-40); Mean Corpuscular HGB Conc 33.8 g/dl (31.0-36.0); Mean Corpuscular Hemoglobin 30.9 pg (27.0-33.0); Mean Corpuscular Volume 91.3 fL (80.0-98.0); Mean Platelet Volume 9.9 fL (9.4-12.4); Monocytes Absolute Auto 0.6 X10*3/uL (0.1-1.2); Monocytes Percent Auto 10.7 % (2-11); Neutrophils Absolute Auto 2.5 x10*3/uL (2.0-8.3); Neutrophils Percent Auto 45.1 % (45-73); Platelet Count 197 X10*3/uL (160-400); Red Blood Count 4.95 X10*6/uL (4.60-5.80); Red Cell Distribution Width 11.9 % (11.0-16.0); White Blood Count 5.5 X10*3/uL (4.8-10.8)
[2024-05-03 13:51] LABS: Alanine Aminotransferase 26 U/L (0-40); Albumin Level 4.2 g/dL (3.5-5.0); Alkaline Phosphatase 53 U/L (39-117); Anion Gap 14 (12-20); Aspartate Amino Transferase 20 U/L (5-37); Bilirubin Total 0.4 mg/dL (0.0-1.0); Blood Urea Nitrogen 13 mg/dL (9-16); Calcium 9.4 mg/dL (8.4-10.2); Carbon Dioxide 27 mmol/L (22-29); Chloride 106 mmol/L (96-108); Cholesterol 179 mg/dL (<200); Estimated Glomerular Filt Rate > 60; Glucose Fasting 91 mg/dL (60-99); HDL Cholesterol 43 mg/dL (>40); LDL Cholesterol Calculated 98 mg/dL (<100); Potassium 4.3 mmol/L (3.3-5.1); Sodium 143 mmol/L (135-145); Total Protein 6.6 g/dL (6.5-8.0); Triglycerides 193 mg/dL (<150)
[2024-05-03 13:54] LABS: TSH reflex Free T4 1.66 uIU/mL (0.32-4.0)
== END 2024-05-03 10:10 | disposition home or self-care (01) ==
LOC: HO.HMGCLDS 10:09
PROVIDERS: PCP Nurse Practitioner Family; Visit Provider Nurse Practitioner Family
DX: Z00.00 Encounter for general adult medical examination without abnormal findings (principal)
CPT/HCPCS: 36415; 80053; 80061; 81003; 84443; 85025

== ENCOUNTER 2024-05-11 12:56 | Outpatient (AMB) | payer OTHER, SELFPAY ==
--- NOTE | 2024-05-11 13:00 | A.OFFPC_ITS ---
Vital Signs 05/11/24 13:02 Height 5 ft 6 in Weight 196 lb BMI 31.6 BP 130/88 Blood Pressure Location Lt brachial Position Sitting Pulse 59 Pulse Source Pulse Oximeter Pulse Oximetry (%) 97 Oxygen Delivery Method Room Air Intake Visit Reasons: 6 Month follow up Intake Note: Patient here to review labs. Allergies No Known Allergies Allergy (Verified 05/11/24 13:03) Medication List - Last Reconciled 05/11/24 by MELECIO Madrigal albuterol sulfate 90 mcg/actuation (Ventolin HFA) 1 inh inhalation QID PRN 30 days amlodipine 2.5 mg PO DAILY coenzyme Q10 150 mg PO DAILY 90 days dicyclomine 10 mg PO BID famotidine 40 mg PO BID 30 days gabapentin 600 mg PO TID hydrocortisone 2.5% (Proctosol HC) 1 appl [place] BID hydroxyzine HCl 25 mg PO DAILY PRN ketoconazole 2% 1 appl topical DAILY 14 days lactobacillus combination no.9 (Adult 50 Plus Probiotic) PO DAILY methocarbamol 750 mg PO QID 90 days multivitamin 1 tab PO DAILY omega [id number]-dfy-epg-fish oil 1,200 (144-216) mg (Fish Oil) caps PO pitavastatin calcium (Livalo) 2 mg PO QPM simethicone (Gas Relief (simethicone)) 125 mg PO BID-QID PRN 30 days tramadol 50 mg PO QID Tobacco use date assessed: 11/11/23 Dental Screening Dental Screen Date: 11/11/23 HPI 6 Month follow up HPI Details Dyslipidemia: Pt is taking atorvastatin 20mg. He reports ongoing severe muscle aches. Pt is taking CoQ10 which does not help. Will stop atorvastatin and start livalo. Denies chest pain, shortness of breath, and dizziness. [facility] Medical History Pre-op examination Colonoscopy refused Cervical radiculitis Anxiety Dyslipidemia Thoracic disc herniation Surgical History H/O colonoscopy H/O esophagogastroduodenoscopy No pertinent past surgical history Family History Father No problems noted. Mother No problems noted. Maternal Grandmother Mental health disorder Social History Household Members: Significant Other Housing: Apartment Alcohol intake: current Alcohol intake frequency: holidays/special occasions only Patient Tobacco Use Status: Former Tobacco user Years Smoked: 4 years ago e-Cigarette/Vaping Use: Never Used Second Hand Smoke Exposure: No Substance Use Type: Marijuana service: No Current occupational status: employed Current occupation: NET TECHNICAL ARCHITECT Cognitive needs: No Hearing needs: No Vision needs: No Questionnaire PHQ-9 Over the last 2 weeks, how often have you been bothered by any of the following problems? 31247 - PHQ-9 Billing: Patient declined-do not bill Source: Developed by Drs. Devaughn Hernandez, Scott Sal and colleagues, with an educational ivory from [employer]. Thrive Questionnaire Date Thrive assessed: 11/11/23 NIGHAT-7 AMB Questionnaire NIGHAT-7 Date NIGHAT - 7 assessed: 11/11/23 Source: Developed by Drs. Devaughn Hernandez, Xochilt Arana, Scott De León and colleagues, with an educational ivory from [employer]. NIGHAT-7 Assessment Billing NIGHAT-7 Assessment Tool: pt declined-do not bill Review of Systems Const Reports as per HPI Physical exam (Primary Care) Vital Signs: Last Vital Signs Pulse 59 05/11/24 13:02 BP 130/88 05/11/24 13:02 Pulse Ox 97 05/11/24 13:02 Oxygen Delivery Method Room Air 05/11/24 13:02 BMI result Body Mass Index 31.6 Tobacco/Smoking Status: Tobacco use Status Tobacco use date assessed 11/11/23 05/11/24 13:02 Patient Tobacco Use Status Former Tobacco user 05/11/24 13:02 e-Cigarette/Vaping Use Never Used 05/11/24 13:02 Thrive Assessment: Date of Thrive Assessment Date Thrive assessed 11/11/23 05/11/24 13:02 Const General: cooperative Orientation/consciousness: patient oriented x3 Resp Effort & Inspection: normal respiratory effort Auscultation: clear to auscultation bilaterally Cardio Rate: regular rate Rhythm: regular rhythm Heart sounds: S1 normal heart sound present and S2 normal heart sound present Neuro General: patient oriented x3 Psych Appearance: grossly normal Mental Status: mental status grossly normal Speech and movement: Normal speech and movement present Affect: normal affect Attitude: cooperative Thought process: Normal thought process present Thought content: Normal thought content present Insight: Good insight present (Psych) Judgement: Good judgement present (Psych) Assessment and Plan Assessment & Plan (1) Dyslipidemia: Code(s): E78.5 - Hyperlipidemia, unspecified Plan: switching statins due to muscle aches. Plan The patient agreed to the use of a medical billing assistant for this encounter. Scribed for MELECIO Hull by Yaneli Garibay medical billing assistant, on 05/11/2024 at 13:25 EST. Orders: Orders Complete Blood Count Auto Diff Today E78.5 - Hyperlipidemia, unspecified Comprehensive [place]. Panel Fast Today E78.5 - Hyperlipidemia, unspecified Lipid Panel Today E78.5 - Hyperlipidemia, unspecified Medications: New pitavastatin calcium (Livalo) 2 mg PO QPM 90 tabs 0RF Discontinued atorvastatin Discontinued Reason: Doctor's Order 20 mg PO BEDTIME 90 days 90 tabs 1RF Coding Level of Care Code Est Pt Level 3 (50126) Diagnoses Dyslipidemia E78.5
[2024-05-11 13:02] VITALS: BP 130/88; PULSE 59; O2SAT 97; BMI 31.6
== END 2024-05-11 17:42 | disposition home or self-care (01) ==
PROVIDERS: PCP Nurse Practitioner Family; Visit Provider Nurse Practitioner Family
DX: E78.5 Hyperlipidemia, unspecified (principal)
CPT/HCPCS: 99213

== ENCOUNTER 2025-03-30 12:10 | Outpatient (AMB) | payer OTHER, SELFPAY ==
--- NOTE | 2025-03-30 12:16 | A.OFFVIS_ITS ---
Vital Signs 03/30/25 12:26 Height 5 ft 6 in Weight 195 lb BMI 31.5 BP 136/70 Blood Pressure Location Rt brachial Position Sitting Pulse 64 Pulse Source Pulse Oximeter Pulse Oximetry (%) 96 Oxygen Delivery Method Room Air Intake Visit Reasons: 8 month follow up Erosive esophagitis R/S 12/16/24 Intake Note: ESTABLISHED PATIENT for GERD + IBS mgmt. CC; Pt denies any new sx or concerns at this time. Pt comments that he has stayed stable and only experiences sx if he forgets to take his medications. Cleaning Supervisor Required: No Accompanied by: Family/Other Allergies No Known Allergies Allergy (Verified 03/30/25 12:17) HPI HPI 8 month follow up Erosive esophagitis R/S 12/16/24: Details: Assessment & Plan (1) Irritable bowel syndrome with both constipation and diarrhea: Code(s): K58.2 - Mixed irritable bowel syndrome (2) GERD (gastroesophageal reflux disease): Code(s): K21.9 - Gastro-esophageal reflux disease without esophagitis (3) Erosive esophagitis: Comment: Very small linear erosion on 2018 EGD, There is an element of esophageal spasm that was relieved 40 started on dicyclomine for IBS Code(s): K22.10 - Ulcer of esophagus without bleeding Plan He continues to do well. He continues his famotidine bid, dicyclomine and sim ethicone - but the simethicone is not covered by his insurance. He has OTC Gas-X pills.He also has proctosol cream that he uses for his intermittent external hemorrhoids. He remains satisfied with his GI regimen. ROV 6 mos. Medications: Refilled dicyclomine 10 mg PO BID 60 caps 6RF famotidine 40 mg PO BID 180 tabs 2RF 30 days K21.9 - Gastro-esophageal reflux disease without esophagitis, K22.10 - Ulcer of esophagus without bleeding TODAY'S VISIT He continues to do well. He continues his famotidine bid, dicyclomine and simethicone (otc gas-x). He only has problems if he skips a dose or eats something like chili. ROV 6 mos. PFSH Medical History (Updated 03/30/25 @ 12:18 by GABRIELA Mcneill) Physical exam Blood typing encounter Physical exam Lumbar disc herniation Pre-op examination Colonoscopy refused Cervical radiculitis Anxiety Dyslipidemia Thoracic disc herniation Surgical History H/O colonoscopy H/O esophagogastroduodenoscopy No pertinent past surgical history Family History Father No problems noted. Mother No problems noted. Maternal Grandmother Mental health disorder Social History Household Members: Significant Other Housing: Apartment Alcohol intake: current Alcohol intake frequency: holidays/special occasions only Patient Tobacco Use Status: Former Tobacco user Years Smoked: 4 years ago e-Cigarette/Vaping Use: Never Used Second Hand Smoke Exposure: No Substance Use Type: Marijuana service: No Current occupational status: employed Current occupation: PACKAGE DESIGNER Cognitive needs: No Hearing needs: No Vision needs: No Review of Systems Const Denies fatigue, Denies fever(s), Denies night sweats, Denies poor appetite and Denies weight loss ENT Reports Normal hearing present, Denies dental pain, Denies dysphagia, Denies hearing loss, Denies mouth pain, Denies odynophagia, Denies throat swelling, Denies tongue swelling and Reports other (Dentition adequate) Card Reports no additional complaints Resp Reports no additional complaints GI Details: Denies abdominal pain, Denies melena, Denies bloating, Denies hematochezia, Denies constipation, Reports GI cramping, Denies dysphagia, Denies excessive flatus, Denies early satiety, Reports heartburn, Denies diarrhea, Denies nausea, Denies odynophagia, Denies vomiting and Denies hematemesis Skin/Breast Denies pruritus, Denies lesions, Denies rash and Denies jaundice Neuro Reports Normal hearing present and Denies Abnormal speech present Endo Denies fatigue Aller/Immun Denies throat swelling and Denies tongue swelling Physical Exam Vital Signs: Last Vital Signs Pulse 64 03/30/25 12:26 BP 136/70 03/30/25 12:26 Pulse Ox 96 03/30/25 12:26 Oxygen Delivery Method Room Air 03/30/25 12:26 BMI result Body Mass Index 31.5 Const General: cooperative, no acute distress, well developed and well groomed Nutritional Appearance: well nourished and obese Orientation/consciousness: oriented to person, oriented to place and oriented to time Limitations: No language barrier HEENT Head: Yes normocephalic and Yes atraumatic Eyes General: appearance normal, both eyes and all related structures Pupils: Equal, round and reactive pupils present Neck Neck: Yes normal visual inspection and Yes no lymphadenopathy Thyroid: Thyroid normal Resp Effort & Inspection: normal respiratory effort and able to speak in complete sentences Auscultation: clear to auscultation bilaterally Cardio Rate: regular rate Rhythm: regular rhythm Heart sounds: Normal, physiologic split S2 sound present Peripheral pulses: radial pulses present and posterior tibial pulses present GI Inspection: No distended and No Abdominal panniculus present Palpation (GI): Soft to palpation, nontender, no guarding, not rigid and No hepatosplenomegaly present Percussion: Yes normal to percussion Auscultation: normal bowel sounds Rectal Exam - Male: Yes deferred Skin General skin exam: no rashes or lesions noted, turgor normal, skin not dry, no jaundice, No spider nevi and no striae Rashes: no rashes Nails: normal Neuro General: oriented to person, oriented to place and oriented to time Cranial nerves: Yes Equal, round and reactive pupils present and Yes Normal hear ing present Speech: No Abnormal speech present Extrem General: Yes normal to inspection, No clubbing, No cyanosis and No edema Psych Appearance: grossly normal and well kempt Mental Status: mental status grossly normal Speech and movement: Normal speech and movement present Affect: normal affect Attitude: cooperative Thought process: Normal thought process present and not confabulating Thought content: Normal thought content present Insight: Good insight present (Psych) Judgement: Good judgement present (Psych) Assessment & Plan Assessment & Plan (1) Irritable bowel syndrome with both constipation and diarrhea: Code(s): K58.2 - Mixed irritable bowel syndrome Category: Medical (2) GERD (gastroesophageal reflux disease): Code(s): K21.9 - Gastro-esophageal reflux disease without esophagitis Category: Medical (3) Erosive esophagitis: Comment: Very small linear erosion on 2019 EGD, There is an element of esophageal spasm that was relieved 40 started on dicyclomine for IBS Code(s): K22.10 - Ulcer of esophagus without bleeding Category: Medical Plan He continues to do well. He continues his famotidine bid, dicyclomine and simethicone (otc gas-x). He only has problems if he skips a dose or eats something like chili. ROV 6 mos. Medications: Changed From dicyclomine 10 mg PO BID 60 caps 6RF To dicyclomine 20 mg (2 x 10 mg) PO BID 120 caps 6RF Refilled dicyclomine 10 mg PO BID 60 caps 6RF famotidine 40 mg PO BID 180 tabs 2RF 30 days K21.9 - Gastro-esophageal reflux disease without esophagitis, K22.10 - Ulcer of esophagus without bleeding Coding Level of Care Code Est Pt Level 3 (91920) Diagnoses Irritable bowel syndrome with both constipation and diarrhea K58.2 GERD (gastroesophageal reflux disease) K21.9 Erosive esophagitis K22.10
[2025-03-30 12:26] VITALS: BP 136/70; PULSE 64; O2SAT 96; BMI 31.5
== END 2025-03-30 12:54 | disposition home or self-care (01) ==
LOC: HO.HGI 12:11
PROVIDERS: PCP Nurse Practitioner Family; Visit Provider Nurse Practitioner
DX: K58.2 Mixed irritable bowel syndrome (principal); K21.9 Gastro-esophageal reflux disease without esophagitis; K22.10 Ulcer of esophagus without bleeding
CPT/HCPCS: 99213

== ENCOUNTER → 2025-03-30 12:10 | Outpatient (BNVA) | payer OTHER, SELFPAY | PROVIDERS: PCP Nurse Practitioner Family; Visit Provider Nurse Practitioner | DX: K22.10 Ulcer of esophagus without bleeding (principal); K58.2 Mixed irritable bowel syndrome; K21.9 Gastro-esophageal reflux disease without esophagitis | CPT/HCPCS: 99212 ==

== ENCOUNTER 2025-10-03 09:56 | Outpatient (REF) | payer OTHER, SELFPAY ==
[2025-10-03 13:44] LABS: MANUAL DIFF FLAG NO
[2025-10-03 13:47] LABS: Appearance Urine Clear; Glucose Urine UA Negative (Negative); PH 6.5 (5.0-9.0); Specific Gravity - Urine 1.015 (1.005-1.025)
[2025-10-03 14:00] LABS: Hematocrit 49.5 % (42.0-52.0); Hemoglobin 16.6 g/dl (14.0-18.0); Imm Gran Abs Auto 0.01 X10*3/uL (0.00-0.03); Imm Gran Pct Auto 0.2 % (0.0-0.4); Lymphocytes Absolute Auto 1.9 X10*3/uL (1.2-4.9); Mean Corpuscular HGB Conc 33.5 g/dl (31.0-36.0); Mean Corpuscular Hemoglobin 30.5 pg (27.0-33.0); Mean Corpuscular Volume 90.8 fL (80.0-98.0); NRBC Abs Auto 0.000 X10*3/uL (0.0-0.012); NRBC Pct Auto 0.0 /100WBC (0.0-0.2); Platelet Count 214 X10*3/uL (160-400); Red Blood Count 5.45 X10*6/uL (4.60-5.80); White Blood Count 4.9 X10*3/uL (4.8-10.8)
[2025-10-03 14:13] LABS: Alanine Aminotransferase 32 U/L (0-40); Albumin Level 4.8 g/dL (3.5-5.0); Alkaline Phosphatase 56 U/L (39-117); Anion Gap 14 (12-20); Aspartate Amino Transferase 30 U/L (5-37); Blood Urea Nitrogen 15 mg/dL (9-16); Calcium 9.6 mg/dL (8.4-10.2); Carbon Dioxide 29 mmol/L (22-29); Chloride 107 mmol/L (96-108); Cholesterol 258 mg/dL (<200); Estimated Glomerular Filt Rate > 60; HDL Cholesterol 44 mg/dL (>40); Potassium 5.1 mmol/L (3.3-5.1); Sodium 145 mmol/L (135-145); Total Protein 7.2 g/dL (6.5-8.0); Triglycerides 419 mg/dL (<150)
[2025-10-03 14:26] LABS: Prostate Specific Antigen 1.01 ng/mL (<0.05-4.0)
== END 2025-10-03 09:57 | disposition home or self-care (01) ==
LOC: HO.HMGCLDS 09:56
PROVIDERS: PCP Nurse Practitioner Family; Visit Provider Nurse Practitioner Family
DX: Z12.5 Encounter for screening for malignant neoplasm of prostate (principal); E78.5 Hyperlipidemia, unspecified; E55.9 Vitamin D deficiency, unspecified
CPT/HCPCS: 36415; 80053; 80061; 81003; 82306; 84153; 84443; 85025

== ENCOUNTER 2025-10-04 12:32 | Outpatient (AMB) | payer OTHER, SELFPAY ==
--- NOTE | 2025-10-04 12:35 | A.OFFPC_ITS ---
Vital Signs 10/04/25 12:36 Height 5 ft 6 in Weight 190 lb BMI 30.7 BP 124/76 Blood Pressure Location Lt brachial Position Sitting Respiration 17 Pulse 83 Pulse Source Pulse Oximeter Temp 98.6 F Temp Source Oral Pulse Oximetry (%) 95 Oxygen Delivery Method Room Air Intake Visit Reasons: PE Intake Note: Pt is here today for PE. Allergies No Known Allergies Allergy (Verified 10/04/25 12:36) Medication List - Last Reconciled 10/04/25 by DAISY Madrigal- albuterol sulfate 90 mcg/actuation (Ventolin HFA) 1 inh inhalation QID PRN 30 days dicyclomine 20 mg (2 x 10 mg) PO BID escitalopram oxalate (Lexapro) 5 mg PO DAILY 30 days famotidine 40 mg PO BID 30 days fenofibrate 54 mg PO DAILY gabapentin 600 mg PO TID hydrocortisone 2.5% (Proctosol HC) 1 appl [place] BID hydroxyzine HCl 25 mg (1/2 x 50 mg) PO DAILY PRN icosapent ethyl (Vascepa) 2 grams (2 x 1 gram) PO BID 30 days ketoconazole 2% 1 appl topical DAILY 14 days methocarbamol 750 mg PO QID 90 days multivitamin 1 tab PO DAILY simethicone (Gas Relief (simethicone)) 125 mg PO BID-QID PRN 30 days Held on 08/18/23. Instructions: insurance does not pay tramadol 50 mg PO QID Tobacco use date assessed: 10/04/25 Dental Screening Dental Screen Date: 10/04/25 Did you have a dental visit in the last 12 months?: No Did you have a dental problem in the last 6 months where you did not have access to dental care?: No Was dental information given to patient?: Patient declined HPI PE HPI Details History of Present Illness The patient is a 50-year-old individual presenting for a physical examination. The patient has a history of statin intolerance. The patient has previously been treated with sertraline and buspirone for mood-related issues. low libido noted. Pt's trigs are quite elevated Health Maintenance - Colon cancer screening is up to date. - PSA is up to date. Social History Review of Systems - Endocrine: Reports low libido. - Psychiatric: Reports feeling very angr y and getting angry quickly. - Denies suicidal or homicidal ideation. -denies any sob, cp, n/v, diarrhea, cons tipation, SI or HI Physical Exam General: Cooperative, healthy appearing, comfortable, no acute distress and well developed Orientation: Patient oriented x3 Limitations: No limitations Head: Normal to inspection Ears: Hearing grossly normal bilaterally Nose: Normal external nose present Face and sinus: Normal facial exam Eyes: Appearance normal, both eyes and all related structures Neck: Normal visual inspection and Yes full ROM Respiratory: Normal respiratory effort and able to speak in complete sentences. Clear to auscultation bilaterally Cardiovascular: Regular rate and rhythm. Normal S1 and S2 GI: Normal to inspection. Soft to palpation and nontender : Declined any exam of his genitalia Skin: No rashes or lesions noted Neuro: Patient oriented x3 Extremities: Normal to inspection Results - Labs: Recent laboratory results indica te a very high triglyceride level. Plan 1. Hypertriglyceridemia The patient's lab results show a very high triglyceride level, and the patient has a history of statin intolerance. The plan is to start Vascepa, fenofibrate, and Goss bergamot. Lipids will be rechecked in approximately two months. 2. Depression The patient reports feeling very angry and becoming angry quickly, which is suggestive of underlying depression, though the patient denies suicidal or homicidal ideation. Past medication trials with sertraline and buspirone have been documented. The patient will be started on Lexapro, with a follow-up scheduled in two months. 3. Low Libido The patient reports a low sex drive. A testosterone level will be checked to investigate this symptom. Discussion Notes I discussed the patient's lab results, which showed a very high triglyceride level. Due to a history of statin intolerance, I have prescribed Vascepa, fenofibrate, and Goss bergamot. We also addressed the patient's reports of low sex drive and significant anger. I will check a testosterone level to evaluate the low libido. As I suspect the anger is related to underlying depression and previous trials of sertraline and buspirone were not effective, I am starting the patient on Lexapro. I will follow up with the patient in two months to review repeat lipid levels and assess the response to the new medications. The patient's colon and PSA screenings are noted to be up to date, and the patient declined a genitourinary examination during this visit. Patient Instructions - Start taking Vascepa, fenofibrate, and Goss bergamot as prescribed for your high triglyceride level. - Begin taking Lexapro as directed to he lp with your mood. - You will need to go to the lab to have your blood drawn to check your testosterone level. - In about two months, you will need to have your lipid levels checked again via a blood test. - Please schedule a follow-up appointmen t in two months to review your lab results and medical progress. [facility] Medical History Protrusion of thoracic intervertebral disc Physical exam Blood typing encounter Physical exam Lumbar disc herniation Pre-op examination Colonoscopy refused Cervical radiculitis Anxiety Dyslipidemia Thoracic disc herniation Surgical History H/O colonoscopy H/O esophagogastroduodenoscopy No pertinent past surgical history Family History Father No problems noted. Mother No problems noted. Maternal Grandmother Mental health disorder Social History Household Members: Significant Other Housing: Apartment Alcohol intake: current Alcohol intake frequency: holidays/special occasions only Patient Tobacco Use Status: Former Tobacco user Years Smoked: 4 years ago e-Cigarette/Vaping Use: Never Used Second Hand Smoke Exposure: No Substance Use Type: Marijuana service: No Current occupational status: employed Current occupation: [employer] Cognitive needs: No Hearing needs: No Vision needs: No Questionnaire PHQ-9 Over the last 2 weeks, how often have you been bothered by any of the following problems? 1. Little interest or pleasure in doing things: not at all 2. Feeling down, depressed, or hopeless: not at all 3. Trouble falling or staying asleep, or sleeping too much: several days 4. Feeling tired or having little energy: several days 5. Poor appetite or overeating: not at all 6. Feeling bad about yourself - or that you are a failure or have let yourself or your family down: not at all 7. Trouble concentrating on things, such as reading the newspaper or watching television: not at all 8. Moving or speaking so slowly that other people could have noticed. Or the opposite - being so fidgety or restless that you have been moving around a lot more than usual: not at all 9. Thoughts that you would be better off or of hurting yourself in some way: not at all Total score: 2 Depression Screening Interpretation: Negative Depression Screening Done: Yes 88600 - PHQ-9 Billing: Yes Source: Developed by Drs. Devaughn Hernandez, Xochilt Arana, Scott De León and colleagues, with an educational ivory from [employer]. Thrive Questionnaire Date Thrive assessed: 10/04/25 I am a: Patient What is your living situation today?: I have a steady place to live Within the past 12 months, did the food you bought not last and you didn't have the money to get more?: Never true Within the past 12 months, did you worry whether your food would run out before you got money to buy more?: Never true Do you have trouble paying for medicines?: No Do you have trouble getting transportation to medical appointments?: No Do you have trouble paying your heating and electricity bill?: No Do you have trouble taking care of your child, family member or friend?: No Do you have trouble with day-to-day activities such as bathing, preparing meals, shopping, managing finances, etc.?: No Are you currently unemployed and looking for a job?: No Are you interested in more education?: No Please select the resources that you would like help with: None Currently or been in a relationship where the following occur: No concerns reported THRIVE Score: 0 AUDIT C Alcohol Use Questionnaire (AUDIT-C) 1. How often do you have a drink containing alcohol?: 2-3 times a week 2. How many drinks containing alcohol do you have on a typical day when you are drinking?: 3 or 4 3. How often do you have six or more drinks on one occasion?: Less than monthly Total Score: 5 NIGHAT-7 AMB Questionnaire NIGHAT-7 Date NIGHAT - 7 assessed: 10/04/25 Feeling nervous, anxious, or on edge: 1 = Several days Not being able to stop or control worryin = Not at all Worrying too much about different things: 0 = Not at all Trouble relaxin = Several days Being so restless that it is hard to sit still: 0 = Not at all Becoming easily annoyed or irritable: 1 = Several days Feeling afraid as if something awful might happen: 0 = Not at all Total NIGHAT-7 score (0-4 normal; 5-9 mild; 10-14 moderate; 15-21 severe): 3 Source: Developed by Drs. Devaughn Hernandez, Xochilt Arana, Scott De León and colleagues, with an educational ivory from [employer]. NIGHAT-7 Assessment Billing NIGHAT-7 Assessment Tool: NIGHAT-7 Assessment 80600 Physical exam (Primary Care) Vital Signs: Last Vital Signs Temp 98.6 F 10/04/25 12:36 Pulse 83 10/04/25 12:36 Resp 17 10/04/25 12:36 BP 124/76 10/04/25 12:36 Pulse Ox 95 10/04/25 12:36 Oxygen Delivery Method Room Air 10/04/25 12:36 BMI result Body Mass Index 30.7 Tobacco/Smoking Status: Tobacco use Status Tobacco use date assessed 10/04/25 10/04/25 12:41 Patient Tobacco Use Status Former Tobacco user 10/04/25 12:35 e-Cigarette/Vaping Use Never Used 10/04/25 12:35 PHQ-9: PHQ-9 Score PHQ-9: Total score 2 10/04/25 12:41 Depression Screening Interpretation: Negative Thrive Assessment: Date of Thrive Assessment Date Thrive assessed 10/04/25 10/04/25 12:41 Currently or been in a relationship where the following occur: No concerns reported Coding Level of Care Code Est Pt Level 3 (99893) Est Pt Prev Care 40-64y(95925) Diagnoses Dyslipidemia E78.5 High triglycerides E78.1 Smoker F17.200 Low libido R68.82 Additional Codes NIGHAT-7 Assessment Billing - NIGHAT-7 Assessment Tool: NIGHAT-7 Assessment 58934 ([id number]) PHQ-9 - 10064 - PHQ-9 Billing: Yes ([id number]) Assessment & Plan Assessment & Plan (1) Dyslipidemia: Code(s): E78.5 - Hyperlipidemia, unspecified Category: Medical (2) High triglycerides: Code(s): E78.1 - Pure hyperglyceridemia Category: Medical (3) Smoker: Code(s): F17.200 - Nicotine dependence, unspecified, uncomplicated Category: Social Hx (4) Low libido: Code(s): R68.82 - Decreased libido Category: Medical Plan . Orders: Orders Comprehensive [place]. Panel Fast 2 Months E78.1 - Pure hyperglyceridemia, E78.5 - Hyperlipidemia, unspecified Lipid Panel 2 Months E78.1 - Pure hyperglyceridemia, E78.5 - Hyperlipidemia, unspecified Testosterone, Free/Total 2 Months R68.82 - Decreased libido Referrals Lung Cancer Screening Referral F17.200 - Nicotine dependence, unspecified, uncomplicated Medications: New hydroxyzine HCl 25 mg (1/2 x 50 mg) PO DAILY PRN 30 tabs 2RF anxiety attacks (acute) escitalopram oxalate (Lexapro) 5 mg PO DAILY 30 tabs 2RF 30 days icosapent ethyl (Vascepa) 2 grams (2 x 1 gram) PO BID 120 caps 3RF 30 days fenofibrate 54 mg PO DAILY 30 tabs 3RF Discontinued coenzyme Q10 Discontinued Reason: Doctor's Order 150 mg PO DAILY 90 days 90 caps 1RF fluvastatin Discontinued Reason: Doctor's Order 20 mg PO QPM 90 caps 1RF
[2025-10-04 12:36] VITALS: BP 124/76; PULSE 83; RESP 17; TEMP 37; O2SAT 95; BMI 30.7
== END 2025-10-04 13:28 | disposition home or self-care (01) ==
LOC: HO.HMCC 12:33
PROVIDERS: PCP Nurse Practitioner Family; Visit Provider Nurse Practitioner Family
DX: Z00.00 Encounter for general adult medical examination without abnormal findings (principal); E78.5 Hyperlipidemia, unspecified; E78.1 Pure hyperglyceridemia; F17.200 Nicotine dependence, unspecified, uncomplicated; R68.82 Decreased libido

== ENCOUNTER → 2025-10-04 12:32 | Outpatient (BNVA) | payer OTHER, SELFPAY | PROVIDERS: PCP Nurse Practitioner Family; Visit Provider Nurse Practitioner Family | DX: Z00.00 Encounter for general adult medical examination without abnormal findings (principal); E78.1 Pure hyperglyceridemia; F32.A Depression, unspecified; R68.82 Decreased libido; Z87.891 Personal history of nicotine dependence | CPT/HCPCS: 96127; 99212; 99396 ==